=== PATIENT | male | born 1995 | race Caucasian/White ===

== ENCOUNTER 2016-11-06 11:28 | Emergency (ER) | payer BC ==
[~2016-11-06] VITALS: Ht 185.4 cm; Wt 95.8 kg
[2016-11-06 11:32] VITALS: TEMP 37.2; Ht 185.4 cm; Wt 95.8 kg
[2016-11-06] MEDS ORDERED: DiphenhydrAMINE HCL 50 MG/ML VIAL IV STA (12:04)
[2016-11-06] MEDS ORDERED: KETOROLAC TROMETHAMINE 30 MG/ML VIAL IV STA (12:04)
[2016-11-06] MEDS ORDERED: FAMOTIDINE 20MG/102 ML D5W ONE (12:05)
[2016-11-06] MEDS ORDERED: FAMOTIDINE IV INJ 20 MG in DEXTROSE 5% 100ML 100 ML IV SCH (12:15)
[2016-11-06] MEDS ORDERED: DEXAMETHASONE SOD INJ 10 MG/ML VIAL IV ONE (12:15)
[2016-11-06 12:18] LABS: BASO % 0.3 %; BASO ABS # 0.02 K/uL (0-0.2); COMPLETE YES; HEMATOCRIT 40.5 % (42-52); IG% 0.1 %; LYMPH ABS # 1.91 K/uL (1.2-3.4); MEAN CELL VOLUME 81.5 fL (80-100); MEAN CORPUSCULAR HEMOGLOBIN 29.6 pg (25-34); MEAN CORPUSCULAR HGB CONC 36.3 g/dl (32-36); MONO % 11.6 %; PLATELET COUNT 212 K/uL (130-400); RED BLOOD COUNT 4.97 M/uL (4.7-6.1); WHITE BLOOD COUNT 7.07 K/uL (4.8-10.8)
[2016-11-06 12:31] LABS: BUN/CREATININE RATIO 9.2 (10-20); CALCIUM 9.2 mg/dl (8.5-10.1); CREATININE 1.1 mg/dl (0.60-1.40); POTASSIUM 3.6 mmol/L (3.5-5.1)
[2016-11-06 13:58] VITALS: BP 113/80; PULSE 62; O2SAT 98
--- NOTE | 2016-11-06 17:57 | EMERGENCY ROOM VISIT NOTE ---
History Report prepared by Elizabeth: Marylin Lr Under the Supervision of: Dr. Lucas Werner D.O. First contact with patient: 11:47 Chief Complaint: ALLERGIC REACTION Stated Complaint: ALLERGIC REACTION TO DYE, NECK PAIN AND SWELLING Nursing Triage Summary: Pt had CT done appriximately half hour ago for swelling in neck and feeling as though throat was tight. Pt reports immediately after dye injection his lips started to swell and he had tightness in the throat. Pt reports hard to take deep breaths. Pt reports face is itchy. VSS History of Present Illness The patient is a 21 year old male who presents to the Emergency Room with complaints of persistent swelling in the throat starting yesterday. Two days ago , he woke up after experiencing a sharp pain in his neck. The next day he had swelling the throat and mouth and went to the doctors. He was checked for strep which was negative. He was taking the dye for a CT scan when the swelling became worse. It was hard to breath and his throat was swelling up increasingly. This occurred about 40 minutes ago. Currently, the swelling has gone down and he is able to breathe more easily, but he is still experiencing some trouble breathing. He reports SOB which he attributes to his throat swelling and not his lungs. He has been experiencing some nasal congestion and itchiness in the lips after the CT dye. He has not been able to eat because of the swelling in his throat. He denies any congestion in his ears, fever, rashes , sore throat, cough, rhinorrhea, abdominal pain, nausea, vomiting, diarrhea, dysuria, and chest pain. He denies any other medical problems. He denies any sick contacts. His immunizations are up to date. Source of History: patient Onset: yesterday Position: throat Quality: other (swelling) Timing: other (persistent) Modifying Factors (Worsening): other (CT dye) Associated Symptoms: No abdominal pain, No chest pain, No cough, No diarrhea , No fevers, No nausea, No rash, No sorethroat, No urinary symptoms, No vomiting Note: Pt reports nasal congestion, itchy lips. Pt denies rhinorrhea, ear congestion. Review of Systems See HPI for pertinent positives & negatives. A total of 10 systems reviewed and were otherwise negative. Family History Pt reports no pertinent family history. Social History Smoking Status: Never Smoker Marital Status: single Housing Status: lives with roommate Occupation Status: [employer] student Current/Historical Medications No Active Prescriptions or Reported Meds Allergies Coded Allergies: Amoxicillin (Unverified Allergy, Unknown, UNKNOWN, 11/06/16) CHILDHOOD ALLERGY Physical Exam Vital Signs Date Time Temp Pulse Resp B/P Pulse Ox O2 Delivery O2 Flow Rate FiO2 11/06/16 13:58 62 16 113/80 98 Room Air 11/06/16 12:17 72 16 106/76 99 Room Air 11/06/16 12:04 72 11/06/16 11:38 98 Room Air 11/06/16 11:32 37.2 80 18 153/92 98 Room Air Physical Exam GENERAL: sitting up in bed, alert, well appearing, well nourished, no distress, non-toxic EYE EXAM: normal conjunctiva OROPHARYNX: no exudate, no erythema, lips, buccal mucosa, and tongue normal and mucous membranes are moist NECK: supple, no nuchal rigidity, no adenopathy, non-tender. Mild fullness along left anterior cervical chain. No stridor LUNGS: Clear to auscultation. Normal chest wall mechanics HEART: no murmurs, S1 normal and S2 normal ABDOMEN: abdomen soft, non-tender, normo-active bowel sounds, no masses, no rebound or guarding. BACK: Back is symmetrical on inspection and there is no deformity, no midline tenderness, no CVA tenderness. SKIN: no rashes and no bruising UPPER EXTREMITIES: upper extremities are grossly normal. LOWER EXTREMITIES: No pitting edema. NEURO EXAM: Normal sensorium, cranial nerves II-XII grossly intact, normal speech, no gross weakness of arms, no gross weakness of legs. Medical Decision & Procedures Laboratory Results 11/06/16 11:40 Red Blood Count 4.97, Mean Corpuscular Volume 81.5, Mean Corpuscular Hemoglobin 29.6, Mean Corpuscular Hemoglobin Concent 36.3, Mean Platelet Volume 11.0, Neutrophils (%) (Auto) 60.0, Lymphocytes (%) (Auto) 27.0, Monocytes (%) (Auto) 11.6, Eosinophils (%) (Auto) 1.0, Basophils (%) (Auto) 0.3, Neutrophils # (Auto ) 4.24, Lymphocytes # (Auto) 1.91, Monocytes # (Auto) 0.82, Eosinophils # (Auto ) 0.07, Basophils # (Auto) 0.02 11/06/16 11:40 Test 11/06/16 11:40 White Blood Count 7.07 K/uL (4.8-10.8) Red Blood Count 4.97 M/uL (4.7-6.1) Hemoglobin 14.7 g/dL (14.0-18.0) Hematocrit 40.5 % (42-52) Mean Corpuscular Volume 81.5 fL (80-100) Mean Corpuscular Hemoglobin 29.6 pg (25-34) Mean Corpuscular Hemoglobin Concent 36.3 g/dl (32-36) Platelet Count 212 K/uL (130-400) Mean Platelet Volume 11.0 fL (7.4-10.4) Neutrophils (%) (Auto) 60.0 % Lymphocytes (%) (Auto) 27.0 % Monocytes (%) (Auto) 11.6 % Eosinophils (%) (Auto) 1.0 % Basophils (%) (Auto) 0.3 % Neutrophils # (Auto) 4.24 K/uL (1.4-6.5) Lymphocytes # (Auto) 1.91 K/uL (1.2-3.4) Monocytes # (Auto) 0.82 K/uL (0.11-0.59) Eosinophils # (Auto) 0.07 K/uL (0-0.5) Basophils # (Auto) 0.02 K/uL (0-0.2) RDW Standard Deviation 37.2 fL (36.4-46.3) RDW Coefficient of Variation 12.5 % (11.5-14.5) Immature Granulocyte % (Auto) 0.1 % Immature Granulocyte # (Auto) 0.01 K/uL (0.00-0.02) Anion Gap 7.0 mmol/L (3-11) Est Creatinine Clear Calc Drug Dose 121.0 ml/min Estimated GFR () 111.4 Estimated GFR (Non- 96.1 BUN/Creatinine Ratio 9.2 (10-20) Calcium Level 9.2 mg/dl (8.5-10.1) Monoscreen NEG (NEG) Laboratory results per my review. Medications Administered Medications (Trade) Dose Ordered Sig/Cyndy Route Start Time Stop Time Status Last Admin Dose Admin Famotidine/ Dextrose (Pepcid IV Inj/ D5 100ml) 102 ml @ 200 mls/hr NOW IV 11/06/16 12:15 11/06/16 14:57 DC 11/06/16 12:11 200 MLS/HR Dexamethasone Sodium Phosphate (Decadron Inj) 10 mg NOW ONCE IV 11/06/16 12:15 11/06/16 12:16 DC 11/06/16 12:10 10 MG Ketorolac Tromethamine (Toradol Inj) 30 mg NOW STAT IV 11/06/16 12:04 11/06/16 12:05 DC 11/06/16 12:11 30 MG Diphenhydramine HCl (Benadryl Inj) 50 mg NOW STAT IV 11/06/16 12:04 11/06/16 12:05 DC 11/06/16 12:10 50 MG ED Course ED COURSE: Vital signs were reviewed and showed normal vitals. The patients medical record was reviewed The above diagnostic studies were performed and reviewed. ED treatments and interventions as stated above. 1153: The patient was evaluated in room C4. A complete history and physical examination was performed. 1204: Benadryl Inj 50 mg IV, Toradol Inj 30 mg IV. 1205: Famotidine 20 mg IV. 1215: Decadron Inj 10 mg IV, Famotidine 20 mg/Dextrose 102 ml @ 200 mls/hr IV. 1304: I reevaluated the patient. He feels back to the way he felt before the CT dye. 1345: Upon reevaluation, the patient is feeling better. I discussed my findings with the patient and he understands and agrees with the treatment plan. Based on the patients age, coexisting illnesses, exam and lab findings the decision to treat as an outpatient was made. The patient remained stable while under my care. The patient appeared well at the time of discharge. Medical Decision Differential diagnoses includes but is not limited to pneumonia, bronchitis, COPD/Asthma exacerbation, pneumothorax, pulmonary embolism, congestive heart failure, acute coronary syndrome Patient is a 21-year-old male who presents the ER referred in following a CT scan of the neck for an allergic reaction. He was having a CT skin of the neck performed as he is having trouble swallowing and feels a fullness on the left side of his neck. Following the CT scan he notes that he became more short of breath and had more nasal congestion. On my exam he is well-appearing with normal vitals. Labs show no significant leukocytosis or anemia. BMP was unremarkable. CT was normal. [place] was negative. Patient was given Benadryl, Decadron and famotidine. He had complete resolution of his symptoms with exception of his left sided neck pain. This is located over the left anterior cervical chain and I do question whether this is secondary to a viral infection. Patient was updated in regards to this and was discharged to follow- up with his primary care doctor tomorrow. Discussed with Pt concerning signs and symptoms to watch out for. Pt was instructed to follow up with their PCP and discussed with the patient their option to return to the ED at anytime for persistent or worsening symptoms. The appropriate anticipatory guidance and out- patient management, including indications for return to the emergency department , were explained at length to the patient and understood. Impression Primary Impression: Sore throat Additional Impression: Allergic reaction Scribe Attestation The scribe's documentation has been prepared under my direction and personally reviewed by me in its entirety. I confirm that the note above accurately reflects all work, treatment, procedures, and medical decision making performed by me. Departure Information Dispostion Home / Self-Care Prescriptions No Active Prescriptions or Reported Meds Referrals [facility] (PCP) Forms HOME CARE DOCUMENTATION FORM, IMPORTANT VISIT INFORMATION Patient Instructions ED Allergic Reaction General Other, My [facility] Additional Instructions Please follow up with your primary care doctor with in the next 24 hours. Any worsening of your symptoms, please return to the ED immediately. This includes fevers greater than 100.4, inability to swallow, trouble breathing, passing out , persistent fevers greater than 100.4, or any other concerning signs or symptoms from your standpoint. If you have any recurrence of the tingling in your lips please take Benadryl 50 mg 3-4 times a day as needed. Please do not drive for the remainder of the day. Problem Qualifiers Additional Impression: Allergic reaction Encounter type: initial encounter Qualified Codes: T78.40XA - Allergy, unspecified, initial encounter
== END 2016-11-06 14:00 | disposition home or self-care (01) ==
LOC: C.EDB 11:30 → C.EDC 14:00
DX: J02.9 Acute pharyngitis, unspecified (principal); T78.40XA Allergy, unspecified, initial encounter; X58.XXXA Exposure to other specified factors, initial encounter

== ENCOUNTER → 2016-11-06 | Outpatient (CLI) | payer BC ==
--- NOTE | 2016-11-06 11:27 | DIAGNOSTIC IMAGING REPORT ---
CT SOFT TISSUE NECK WITH CT DOSE: 325.15 mGycm CLINICAL HISTORY: NECK SWELLING TECHNIQUE: Helical images were acquired during intravenous administration of 116 cc of Optiray 320. COMPARISON STUDY: None. FINDINGS: The visualized portions of the lung apices are unremarkable. No thyroid masses are visualized. No salivary gland masses are visualized. There are no pathologically enlarged cervical lymph nodes. No necrotic nodes are evident. There are no fluid collections suspicious for abscess. There is no evidence of airway compromise. No mucosal space masses are visualized. There is minor mucosal thickening left maxillary sinus. IMPRESSION: 1. No pathologic masses or adenopathy identified on CT scanning. 2. Clinical follow-up is recommended 3. No evidence of airway compromise Electronically signed by: Anthony Harding M.D. 11/06/2016 11:25 AM Dictated Date/Time: 11/06/2016 11:15 AM
== END | disposition home or self-care (01) ==
LOC: C.CTS 10:54
PROVIDERS: ATTEND Internal Medicine
DX: R22.1 Localized swelling, mass and lump, neck (principal)